=== PATIENT | male | born 1960 | race Asian ===

== ENCOUNTER 2019-05-10 15:15 | Emergency (ER) | payer OTHER ==
[~2019-05-10] VITALS: Ht 165.1 cm; Wt 70.5 kg
[2019-05-10 18:03] VITALS: BP 153/66
== END 2019-05-10 18:45 | disposition home or self-care (01) ==
LOC: EMS 15:17
DX: S09.90XA Unspecified injury of head, initial encounter (principal); W20.8XXA Other cause of strike by thrown, projected or falling object, initial encounter; Y93.89 Activity, other specified; Y92.89 Other specified places as the place of occurrence of the external cause; Y99.8 Other external cause status
CPT/HCPCS: 70450

== ENCOUNTER 2025-01-17 21:24 | Emergency (ER) | payer OTHER ==
[~2025-01-17] VITALS: Ht 165.1 cm; Wt 76.4 kg
[2025-01-17 21:31] VITALS: TEMP 98.6
[2025-01-17] MEDS: ACETAMINOPHEN 500 MG TABLET PO ONE (23:09)
[2025-01-17] MEDS: LIDOCAINE 5% TRANSDERMAL PATCH TD ONE (23:10)
[2025-01-17] MEDS: IBUPROFEN 400 MG TABLET PO ONE (23:11)
[2025-01-18 00:20] VITALS: BP 131/75; PULSE 67; RESP 18; O2SAT 99
[2025-01-18] MEDS ORDERED: METH-812 PO (00:27)
== END 2025-01-18 00:37 | disposition home or self-care (01) ==
LOC: EMS 21:24
DX: S33.5XXA Sprain of ligaments of lumbar spine, initial encounter (principal); X50.0XXA Overexertion from strenuous movement or load, initial encounter; Y93.89 Activity, other specified; Y92.89 Other specified places as the place of occurrence of the external cause; Y99.0 Civilian activity done for income or pay
CPT/HCPCS: 99284; Z7502; Z7610